=== PATIENT | female | born 1955 | race Caucasian/White ===

== ENCOUNTER → 2020-04-27 | Outpatient (CLI) | payer OTHER ==
[2020-04-27 13:36] LABS: BLOOD UREA NITROGEN 8 MG/DL (7-18); CALCIUM LEVEL 9.4 MG/DL (8.8-10.2); CARBON DIOXIDE LEVEL 27 MEQ/L (21-32); CHLORIDE LEVEL 107 MEQ/L (98-107); GLOMERULAR FILTRATION RATE > 60.0 (>45); GLUCOSE, FASTING 98 MG/DL (70-100); POTASSIUM SERUM 4.1 MEQ/L (3.5-5.1); SODIUM LEVEL 140 MEQ/L (136-145)
--- NOTE | 2020-04-28 06:03 | ECGEPIP ---
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
== END ==
LOC: M LAB 12:08
PROVIDERS: ATTEND Family Medicine
DX: S83.242D Other tear of medial meniscus, current injury, left knee, subsequent encounter (principal)

== ENCOUNTER → 2020-05-29 | Outpatient (CLI) | payer OTHER ==
[~2020-05-29] MED LIST: INSUDET SC; PREG75CA2 PO; ROSU20TA5 PO; TRAM50TA2 PO
== END ==
LOC: M LABSMTC 10:21
PROVIDERS: ATTEND Anesthesiology
DX: Z01.812 Encounter for preprocedural laboratory examination (principal); Z20.822 Contact with and (suspected) exposure to COVID-19

== ENCOUNTER → 2020-07-07 | Outpatient (CLI) | payer OTHER ==
--- NOTE | 2020-07-07 13:45 | REP ---
INDICATION: LEFT HAND PAIN. COMPARISON: None. TECHNIQUE: AP and lateral views of the left elbow FINDINGS: Osseous structures, joint spaces, and surrounding soft tissues are normal. No evidence for acute or healed injury. No obvious effusion. No overt arthritic changes noted. IMPRESSION: Normal age-appropriate left elbow radiographs. <Electronically signed by Dhruv Leung > 07/07/20 0623
--- NOTE | 2020-07-07 13:46 | REP ---
INDICATION: LEFT HAND PAIN. COMPARISON: None. TECHNIQUE: AP, lateral, oblique views of the left hand FINDINGS: Generalized arthritic changes are appreciated and most pronounced at the 1st carpometacarpal and metacarpophalangeal joint. Findings include areas of subchondral sclerosis along with mild joint space narrowing. No acute fracture or dislocation. No subcutaneous emphysema or foreign body. IMPRESSION: Generalized arthritic age-related changes. <Electronically signed by Dhruv Leung > 07/07/20 [id number]
== END ==
LOC: M SOG 13:23
PROVIDERS: ATTEND Orthopaedic Surgery Sports Medicine
DX: M79.642 Pain in left hand (principal)

== ENCOUNTER → 2020-10-10 | Outpatient (CLI) | payer OTHER ==
--- NOTE | 2020-10-12 16:13 | SLEEPCENT ---
NOCTURNAL POLYSOMNOGRAPHY DATE: 10/10/2020 ORDERED BY: CARI Tidwell Nocturnal polysomnography was performed for evaluation of sleep physiology. 7 hours and 45 minutes of data were reviewed. There were 425 minutes of sleep identified. Sleep latency was mildly prolonged at 28.5 minutes. REM latency was normal at 71 minutes. Sleep architecture showed some fragmentation. There were 4 REM cycles noted. Overall sleep efficiency was 92.5%. The electrocardiogram showed a sinus rhythm with an average heart rate of 75 beats per minute. EEG showed reasonably normal waveforms for wake and sleep. There were 155 respiratory events identified of 10 seconds in duration or greater for an apnea-hypopnea index of 21.9. The events were primarily obstructive, not exclusive to sleep stage and not exclusive to body position. Arousals from respiratory events occurred 4 times per hour and oxygen desaturations were seen into the 80s. There was some minor limb activity. Limb movement arousal index was 4.1. IMPRESSION: Obstructive sleep apnea syndrome (G47.33), apnea-hypopnea index 21.9. RECOMMENDATION: The patient should be encouraged to return to [facility] for [facility]. In the interim, alcohol and sedative avoidance should be practiced and caution exercised during the operation of motor vehicles.
== END ==
LOC: M SLEEP 20:00
PROVIDERS: ATTEND Nurse Practitioner Family
DX: G47.33 Obstructive sleep apnea (adult) (pediatric) (principal)

== ENCOUNTER → 2020-11-18 | Outpatient (CLI) | payer OTHER ==
--- NOTE | 2020-11-19 14:20 | SLEEPCENT ---
DATE: 11/18/2020 ORDERED BY: CARI Tidwell Nocturnal polysomnography was performed for the titration of pressure therapy in this patient with obstructive sleep apnea syndrome, apnea-hypopnea index of 21.9. For testing, a ResMed Quattro full face mask of small size was used, 4 cm of water pressure was applied to the circuit and the lights were extinguished. Six hours and 29 minutes of data were reviewed. There were 358.5 minutes of sleep identified. Sleep latency was normal at 11.5 minutes. REM latency was short at 65 minutes. Sleep architecture was reasonably good with three REM cycles. Overall sleep efficiency was 94%. The electrocardiogram showed a sinus rhythm with an average heart rate of 64 beats per minute. Rate ranged 50-90. EEG showed normal waveforms for wake and sleep. Respiratory events were fully palliated with CPAP at a pressure of 16. Some limb activity was noted. Limb movement arousal index on this occasion was 5.5. IMPRESSION: Obstructive sleep apnea syndrome (G47.33). RECOMMENDATION: Nightly u se of pressure therapy 16 cm of water.
== END ==
LOC: M SLEEP 20:00
PROVIDERS: ATTEND Nurse Practitioner Family
DX: G47.33 Obstructive sleep apnea (adult) (pediatric) (principal)

== ENCOUNTER → 2024-04-26 | Outpatient (REF) | payer OTHER ==
[~2024-04-26] MED LIST changes: -PREG75CA2 PO; +PREG75CA3 PO; -ROSU20TA5 PO; +ROSU20TA86 PO
[2024-04-26 12:49] LABS: CREATININE, URINE 69.2 MG/DL
[2024-04-26 12:50] LABS: MALB URINE SIEMENS < 3.0 MG/L
[2024-04-26 12:52] LABS: BASO % 0.6 % (0.0-1.0); EOS # 0.1 10^3/uL (0.0-0.5); EOS % 1.8 % (0.0-3.0); HEMATOCRIT 48.2 % (36.0-47.0); HEMOGLOBIN 15.6 g/dl (12.0-15.5); LYMPH # 2.1 10^3/uL (1.5-5.0); LYMPH % 34.3 % (24.0-44.0); MEAN CORPUSCULAR HEMOGLOBIN 28.4 pg (27.0-33.0); MEAN CORPUSCULAR HGB CONC 32.4 g/dl (32.0-36.5); MEAN CORPUSCULAR VOLUME 87.8 fl (80.0-96.0); MONO # 0.5 10^3/uL (0.0-0.8); MONO % 8.7 % (2.0-8.0); NEUTROPHILS # 3.4 10^3/uL (1.5-8.5); NEUTROPHILS % 54.4 % (36.0-66.0); PLATELET COUNT, AUTOMATED 263 10^3/uL (150-450); RED BLOOD COUNT 5.49 10^6/uL (4.00-5.40); WHITE BLOOD COUNT 6.2 10^3/uL (4.0-10.0)
[2024-04-26 13:16] LABS: ALBUMIN 4.2 G/DL (3.2-5.2); ALKALINE PHOSPHATASE 97 U/L (35-104); ALT/SGPT 20 U/L (7.0-40); AST/SGOT 16 U/L (<34); BILIRUBIN,TOTAL 1.7 MG/DL (0.3-1.2); BLOOD UREA NITROGEN 12 MG/DL (9-23); CALCIUM LEVEL 9.9 MG/DL (8.3-10.6); CARBON DIOXIDE LEVEL 30 MMOL/L (20-31); CHLORIDE LEVEL 107 MMOL/L (98-107); CHOLESTEROL LEVEL 160 MG/DL (<200); CHOLESTEROL RISK RATIO 2.05 (<5); CREATININE FOR GFR 0.57 MG/DL (0.55-1.30); GLOMERULAR FILTRATION RATE > 60.0 (>45); GLUCOSE, FASTING 100 MG/DL (74-106); HDL CHOLESTEROL 77.9 MG/DL (>40); LDL CHOLESTEROL 67.5 MG/DL (<100); NON-HDL-C 82.1 MG/DL; POTASSIUM SERUM 4.9 MMOL/L (3.5-5.1); SODIUM LEVEL 144 MMOL/L (136-145); TOTAL PROTEIN 7.3 G/DL (5.7-8.2); TRIGLYCERIDES LEVEL 73 MG/DL (<150)
[2024-04-26 13:17] LABS: TOTAL 25(OH) VITAMIN D 58.1 NG/ML (20.0-100.0)
[2024-04-26 13:42] LABS: HEMOGLOBIN A1c 5.9 % (4.0-6.0)
== END ==
LOC: M LAB REF 11:55
PROVIDERS: ATTEND Student in an Organized Health Care Education/Training Program
DX: E11.9 Type 2 diabetes mellitus without complications (principal); M85.80 Other specified disorders of bone density and structure, unspecified site; Z86.73 Personal history of transient ischemic attack (TIA), and cerebral infarction without residual deficits

== ENCOUNTER → 2024-05-10 | Outpatient (REF) | payer OTHER | LOC: M LAB REF 16:35 | PROVIDERS: ATTEND Student in an Organized Health Care Education/Training Program | DX: R23.8 Other skin changes (principal) ==

== ENCOUNTER → 2024-07-31 | Outpatient (CLI) | payer OTHER | LOC: M RAD 11:43 | PROVIDERS: ATTEND Internal Medicine Cardiovascular Disease | DX: I73.9 Peripheral vascular disease, unspecified (principal); I11.0 Hypertensive heart disease with heart failure; R09.89 Other specified symptoms and signs involving the circulatory and respiratory systems ==

== ENCOUNTER → 2025-01-01 | Outpatient (REF) | payer MEDICARE, OTHER ==
[~2025-01-01] MED LIST changes: +ARIP1TAB10 PO; +ASPI81TA26 PO; +CETI10CH PO; +DORZ10DR10 OU; +DULO60CA35 PO; +FLON1SPR; +JARD1TAB PO; +LOSA25TA13 PO; +LYRI150C PO; +METF500T13 PO; +NIFE10CA61 PO; +TIRZ5PEN3 SQ
[2025-01-01 13:38] LABS: BASO # 0.1 10^3/uL (0.0-0.2); BASO % 0.7 % (0.0-1.0); EOS # 0.2 10^3/uL (0.0-0.5); EOS % 2.8 % (0.0-3.0); LYMPH # 2.0 10^3/uL (1.5-5.0); LYMPH % 23.4 % (24.0-44.0); MONO # 0.8 10^3/uL (0.0-0.8); MONO % 9.7 % (2.0-8.0); NEUTROPHILS # 5.4 10^3/uL (1.5-8.5); NEUTROPHILS % 63.0 % (36.0-66.0); PLATELET COUNT, AUTOMATED 304 10^3/uL (150-450)
[2025-01-01 13:48] LABS: IRON (FE) 72 UG/DL (50-170); VITAMIN B12 LEVEL 306 PG/ML (211-911)
[2025-01-01 13:49] LABS: PERCENT SATURATION 20.9 % (13.2-45.0)
[2025-01-01 13:51] LABS: ALT/SGPT 27 U/L (7.0-40); AST/SGOT 28 U/L (<34); CALCIUM LEVEL 9.8 MG/DL (8.3-10.6); CARBON DIOXIDE LEVEL 25 MMOL/L (20-31); CHLORIDE LEVEL 106 MMOL/L (98-107); CHOLESTEROL LEVEL 117 MG/DL (<200); CHOLESTEROL RISK RATIO 2.40 (<5); CREATININE FOR GFR 0.65 MG/DL (0.55-1.30); ESTIMATED AVERAGE GLUCOSE 128.0 MG/DL (60-110); GLOMERULAR FILTRATION RATE > 90.0 (>45); LDL CHOLESTEROL 43.5 MG/DL (<100); NON-HDL-C 68.3 MG/DL; POTASSIUM SERUM 4.3 MMOL/L (3.5-5.1); SODIUM LEVEL 145 MMOL/L (136-145); TRIGLYCERIDES LEVEL 124 MG/DL (<150)
== END ==
LOC: M LAB REF 12:12
PROVIDERS: ATTEND Student in an Organized Health Care Education/Training Program
DX: E11.9 Type 2 diabetes mellitus without complications (principal); I10 Essential (primary) hypertension; R53.83 Other fatigue

== ENCOUNTER 2025-01-03 06:02 | Day surgery (SDC) | payer MEDICARE, OTHER ==
[~2025-01-03] VITALS: Ht 157.5 cm; Wt 79.4 kg
[~2025-01-03 06:02] MED LIST changes: +LIDOCAINE W/EPINEPHrine 1% 20 ML VIAL XX ONE; +SODIUM BICARBONATE 8.4% INJ 50MEQ/50ML VIAL XX ONE
[2025-01-03 08:27] VITALS: BP 130/70; TEMP 97.9; O2SAT 98
== END 2025-01-03 08:30 | disposition home or self-care (01) ==
LOC: M SDC 06:02
PROVIDERS: ATTEND Orthopaedic Surgery Hand Surgery
DX: M65.342 Trigger finger, left ring finger (principal); M65.352 Trigger finger, left little finger

== ENCOUNTER → 2025-01-08 | Outpatient (REF) | payer MEDICARE, OTHER ==
[~2025-01-08] MED LIST changes: -LIDOCAINE W/EPINEPHrine 1% 20 ML VIAL XX ONE; -SODIUM BICARBONATE 8.4% INJ 50MEQ/50ML VIAL XX ONE
== END ==
LOC: M LAB REF 14:31
PROVIDERS: ATTEND Student in an Organized Health Care Education/Training Program
DX: B37.31 Acute candidiasis of vulva and vagina (principal); Z79.899 Other long term (current) drug therapy

== ENCOUNTER → 2025-02-17 | Outpatient (CLI) | payer MEDICARE, OTHER | LOC: M SLEEP HO 01-24 11:13 | PROVIDERS: ATTEND Student in an Organized Health Care Education/Training Program | DX: G47.33 Obstructive sleep apnea (adult) (pediatric) (principal) ==